=== PATIENT | female | born 1990 | race Caucasian/White ===

== ENCOUNTER 2018-12-11 20:00 | Inpatient (IN) | payer SELFPAY ==
[2018-12-11 20:34] VITALS: BMI 41.3
[2018-12-11] MEDS: Lactated Ringers 1,000 ML 50 ML IV ×2 (20:35→22:54)
[2018-12-11] MEDS: 0.9% Normal Saline 100 ML IV.SOLN. INTRA-UTER (21:00)
[2018-12-11] MEDS: Oxytocin 30 units/NS 500 ml 30 UNITS/500 ML IV.SOLN IV (21:05)
--- NOTE | 2018-12-11 21:31 | PCM.HP.OB ---
- Problem List (1) Obesity affecting Status: Acute (2) Previous section Status: Acute (3) Encounter for trial of labor Status: Acute (4) Multiparous Status: Acute (5) History of delivery of macrosomal infant Status: Acute (6) Post-dates Status: Acute History Date of Admission: 12/11/18 Final DAVID: 12/01/18 Final DAVID Source: US >20 weeks Gestational age: 41 Weeks and 3 Days History of this : This is a 28 year-old, G [7], P [5015], at 41 weeks 3days gestational age by 36w1d ultrasound. Patient presented for visit in office today for postdates. Patient being seen by daphnie Hernandezife during and had not gone into labor with herbal remedies and castor oil. Previous section due to failed induction of labor and CPD per section report. Prior to section she had 4 uncomplicated vaginal births at home. Patient had care with Karlene Osuna. No labs, she did not receive rhogam during . No GBS testing. In office reviewed option with patient for repeat LTCS vs. TOLAC. She desires TOLAC at this time. Having some irregular contractions since office visit today. Allergies No Known Allergies Allergy (Verified 08/18/17 17:38) Home Medications: Home Medications Vit No.129/Iron/Folic [ Tablet] 1 each PO 12/11/18 Smoking Status: Never smoker Alcohol: None Number of Fetus(es): 1 Heart Tracin, moderate variability, accels, no decels. Category 1 TOCO Analysis: Irregular, mild History Past Pregnancies: Past Pregnancies Delivery Date Name GA/Weeks Outcome Route Weight Gender Labor Length Anesthesia Delivery Location Provider FOB Labs: None Expected Infant Delivery Method: Number of Visits: care since 16 weeks with daphnie Hernandezife. Review of Systems Constitutional: Denies: Chills, Fever, Weight Change HEENT: Denies: Head Aches, Sinus Congestion, Sinus Drainage Cardiovascular: Denies: Chest Pain, Palpitations Respiratory: Denies: Cough, Shortness of breath at rest, Sputum production Gastrointestinal: Denies: Abdominal Pain, Nausea, Vomiting Genitourinary: Denies: Dysuria Musculoskeletal: Denies: Joint Pain, Joint Tenderness Neurological: Denies: Numbness, Tingling, Focal weakness Psychiatric: Denies: Anxiety, Depression, Homicidal Ideations, Suicidal Ideations Physical Exam General: Alert, Oriented x3, No apparent distress HEENT: Atraumatic, Normocephalic Cardiovascular: Regular rate, Regular Rhythm, No murmurs Lungs: Clear to auscultation, Normal air movement, No rhonchi, No wheeze Abdomen: Bowel Sounds Present, Soft, Non Tender, Gravid Extremities:: No edema Neurological: - - Bilateral patellar DTR +1/4. Negative for: Clonus CLAIMS ACCOUNT MANAGER: Normal external genitalia Estimated gestational size: Appropriate for gestational size Presentation: Cephalic Cervix Dilation (cm): 1 - Menard bulb placed without difficulty. Patient tolerated well. Station: -3 Effacement (%): 60 Assessment/Plan All Active Problems Obesity affecting (Acute) Previous section (Acute) Encounter for trial of labor (Acute) Multiparous (Acute) History of delivery of macrosomal (Acute) Post-dates (Acute) This is a 28 year-old, G [7], P [5015], at 41 weeks 3 days gestational age by third trimester ultrasound A:Post Dates Induction of Labor Category 1 FHT TOLAC P: 1) Admit to L&D. Routine labs. 2) No PN labs done, HIV, RPR, HBsAG ordered. Patient declined GC/CT. Rapid GBS ordered. 3) Planning unmedicated at this time. Reviewed epidural option and patient declines placement. 4) Menard bulb for cervical ripening. Low dose Pitocin started 5) consulted for comanagement and updated on patient status. present in hospital.
[2018-12-11 21:49] LABS: Rubella IgG 258.6 IU/mL
[2018-12-11 22:01] LABS: Group B Strep DNA By PCR Negative (Negative); Internal Control PASS; Probe Check PASS; Specimen Processing Control PASS
[2018-12-11 22:12] LABS: Mucous, Urine 0 SEEN /hpf (<or=2+)
[2018-12-11 22:16] LABS: Absolute Lymphocyte Count 2.04 X10^3/ul (0.83-4.51); Absolute Neutrophil Count 11.1 X10^3/uL (2.0-7.7); Basophil# 0.02 X10^3/uL; Basophil% 0.1 % (0-1); Eosinophil# 0.11 X10^3/uL; Eosinophils% 0.8 % (0-5); Hematocrit 35.8 % (37-47); Hemoglobin 11.9 g/dl (12.0-15.0); Lymphocyte # 2.04 X10^3/ul (4.0); Lymphocyte % 14.4 % (19-41); Mean Corp Hgb Conc 33.2 g/gl (32-36); Mean Corpuscular Hgb 28.9 pg (27.0-32.0); Mean Corpuscular Volume 86.9 fL (81-99); Mean Platelet Vol. 9.3 fl (6.2-12.0); Monocyte# 0.93 X10^3/uL; Monocyte% 6.6 % (0-10); Neutrophil # 11.06 X10^3/uL (2.7-7.7); Platelet Count 228 K/mm3 (150-450); RBC Distribution Width CV 13.3 % (11.6-14.6); RBC Distribution Width SD 42.6 fl (35.1-43.9); Red Blood Count 4.12 M/mm3 (4.2-5.4); White Blood Count 14.2 K/mm3 (4.4-11.0)
[2018-12-11 22:20] LABS: Color, Urine Yellow (Yellow); Glucose, Dipstick Normal (Normal); Ketone-Dipstick Negative (Negative); Leukocyte Esterase-Dipstick 25 /ul (Negative); Nitrite-Dipstick Negative (Negative); Occult Blood-Urine 250 /ul (Negative); POSITIVE COUNT NO; POSITIVE DIFFERENTIAL NO; POSITIVE MORPHOLOGY NO; Protein-Dipstick Negative (Negative); Specific Gravity, Urine 1.025 (1.002-1.030); Urine Bilirubin Dipstick Negative (Negative); Urine Clarity Sl. Cloudy (Clear); Urine Urobilinogen Normal (Normal)
[2018-12-11 22:25] LABS: Amphetamine Urine VISTA NEGATIVE (<1000 ng/mL); Barbiturate Urine VISTA NEGATIVE (< 200 ng/mL); Benzodiazepine Urine VISTA NEGATIVE (< 200 ng/mL); Cocaine Urine VISTA NEGATIVE (< 300 ng/mL); Ecstacy Urine VISTA NEGATIVE (< 500 ng/mL); Methadone Urine VISTA NEGATIVE (< 300 ng/mL); PCP Urine VISTA NEGATIVE (< 25 ng/mL); THC Urine VISTA NEGATIVE (< 50 ng/mL); Vista UDS pH Range 6
[2018-12-11 22:28] LABS: Bacteria 2+ /hpf (None Seen); Red Blood Cells-Urine 0-5 SEEN /hpf (0-5); White Blood Cells 0-5 SEEN /hpf (0-5)
[2018-12-11 22:30] LABS: Squamous Epithelial Cells - UA 5-10 SEEN /hpf (5-10)
[2018-12-11 23:49] LABS: HIV - WCH Non-Reactive (Nonreactive)
[2018-12-12 00:24] LABS: Chlamydia Trachomatis by PCR Negative (Negative); Neisserai gonorrhoeae by PCR Negative (Negative); Probe Check PASS; Sample Adequacy Control PASS; Specimen Processing Control PASS
[2018-12-12] MEDS: Lactated Ringers 1,000 ML 50 ML IV ×2 (03:11→06:23)
[2018-12-12] MEDS: fentaNYL-bupivacaine (epidural) 100 ML BAG EPIDURAL (04:00)
[2018-12-12] MEDS: Oxytocin 30 units/NS 500 ml 30 UNITS/500 ML IV.SOLN 334 UNITS IV (07:54)
--- NOTE | 2018-12-12 08:07 | PCM.OB.VAG ---
- Problem List (1) Obesity affecting Status: Acute (2) Previous section Status: Acute (3) Encounter for trial of labor Status: Acute (4) Multiparous Status: Acute (5) History of delivery of macrosomal infant Status: Acute (6) Post-dates Status: Acute (7) Vaginal after delivery Status: Acute Vaginal Delivery Maternal Presentation: Medically Indicated Induction Method of Induction: Pitocin, Menard Bulb Medical Reason for Induction: - - Postdates Amniotic Membrane Rupture Type: Artificial - Meconium stained fluid Amniotic Fluid Description: Lightly stained meconium Final DAVID: 12/01/18 Final DAVID Source: US >20 weeks Gestational age: 41 Weeks and 4 Days Date of Procedure: 12/12/18 Pre-Operative Diagnosis: Postdates Post-Operative Diagnosis: Surgery/ Procedure Performed: Spontaneous Vaginal Delivery Type of Anesthesia: Epidural Description of Procedure: Progressed to complete with urge to push. of viable female over intact perineum. APGARS 8,9. Infant delivered uncomplicated and placed on maternal abdomen. Spontaneous cry, mouth and nares suctioned for secretions, terminal meconium. Pitocin started for active 3rd stage management. Cord clamped and cut after pulsations ceased by FOB. Placenta delivered with maternal effort, intact, 3 vessel cord. Cord blood taken for B negative blood type. Fundus firm. Perineum inspected and intact, no repair. EBL 200ml. Vaginal sweep completed, instrument and sponge count complete. Planning to breastfeed. Mom and baby stable, family bonding well. present at hospital for . Presentation: Vertex Placental Delivery Description: Spontaneous Placenta Disposition: [facility] Cord Vessel Description: 3 Vessels Cord Entanglement: None Estimated Blood Loss: 200 ml Infant A gender: Female (1 minute): 8 (5 minute): 9 Episiotomy Description: None Laceration: None Medications given after delivery: IV Pitocin
[2018-12-12] MEDS: Oxytocin 30 units/NS 500 ml 30 UNITS/500 ML IV.SOLN 167 UNITS IV (08:24)
[2018-12-12] MEDS: 0.9% Saline Lock 10 ML Syringe IV (09:42)
--- NOTE | 2018-12-12 10:50 | NURSING ---
alexis cut bernal catheter during delivery period.
[2018-12-12 12:43] VITALS: BP 123/70; PULSE 87; RESP 18; TEMP 36.6
[2018-12-12 17:14] VITALS: BP 119/68; PULSE 81; RESP 18; TEMP 36.7
[2018-12-12 19:35] VITALS: BP 106/59; PULSE 87; RESP 16; TEMP 36.2
--- NOTE | 2018-12-12 23:38 | DCINST_ITS ---
Discharge Diet: No Restrictions Discharge Activity: Return to Normal Activity, May not drive while taking narcotic pain medications., May Shower, May Take a Tub Bath May resume sexual activity in: 4-6 weeks Weight Bearing Status: Full weight bearing Additional Activity Instructions:: Nothing in the vagina for 4-6 weeks. You may return to work/school in 6 weeks. Call your doctor if your incision/area has: Continuous Slow Oozing, Sudden Increased Bleeding, Increased Pain/ Swelling, Increased Redness, Foul Smelling Discharge Call your doctor if you observe: Fever of 101 or Higher, Inability to urinate, Inability to have a bowel movement, Using more than one pad per hour, Shortness of breath, Chest pain, Increased palpitations (irregular heartbeat), Calf discomfort, Uncontrolled pain Additional Instructions: If you experience any of the following, contact your healthcare provider. * Bleeding that soaks a pad every hour for 2 hours * Fever 100.4 or higher * Unrelieved incision or abdominal pain * Swelling, redness, discharge or bleeding from your incision or episiotomy site * Your incision begins to separate * Problems urinating (including inability to urinate or burning while urinating). * Visual changes * Severe headache * Flu-like symptoms * Pain or redness in one of both of your breasts * Pain, warmth, tenderness or swelling in your legs, especially the calf area * Frequent nausea and vomiting * Symptoms of depression or anxiety If you experience any of the following, call 911 or go to the nearest Emergency Room. * Chest pain * Problems breathing * Seizure activity * Partial or complete paralysis of a body part, slurred speech, weakness or drooping of the face, or a sudden inability to walk or hold your balance Allergies/Adverse Reactions: Allergies No Known Allergies Allergy (Verified 08/18/17 17:38) Medications to take at Discharge Vit No.129/Iron/Folic [ One Daily Tablet] 1 each PO 12/11/18 Please Follow Up With: Desi Weiss CNM When: Call to make an appointment with your doctor or data warehouse developer in 6 weeks. If you had elevated Blood Pressure or 4th degree laceration you will need to be seen in 2 weeks. Test Results: Test results from this visit will be discussed in further detail at your follow- up appointment, if applicable.
[2018-12-13 00:25] VITALS: BP 129/69; PULSE 74; RESP 16; TEMP 36.4
[2018-12-13 03:30] VITALS: BP 110/61; PULSE 74; RESP 16; TEMP 36.2
[2018-12-13 08:00] VITALS: BP 116/68; PULSE 88; RESP 16; TEMP 36.1; O2SAT 98
--- NOTE | 2018-12-13 09:13 | PCM.PN.OB ---
Patient Problems: Active and Suspected Problems Obesity affecting (Acute) Previous section (Acute) Encounter for trial of labor (Acute) Multiparous (Acute) History of delivery of macrosomal (Acute) Post-dates (Acute) Vaginal after delivery (Acute) Subjective: Pt doing well. No complaints. Tolerating reg diet. Ambulating and voiding without difficulty. Denies CP, lightheadedness, uncontrolled pain, leg pain. Cramping controlled. She feels ready to go home today. - Physical Exam General: Alert, No apparent distress HEENT: Atraumatic Lungs: - - No increased resp effort Abdomen: Soft, Non Tender, - - FF@U-1 Extremities: No edema Skin: No rashes Neurological: Neuro grossly intact Psych/Mental Status: Normal Affect, Appropriate Vital Signs Temp Pulse Resp BP Pulse Ox 97.0 F L 88 16 116/68 98 12/13/18 08:00 12/13/18 08:00 12/13/18 08:00 12/13/18 08:00 12/13/18 08:00 Oxygen Delivery Method Room Air Weight: 240 lb 11.916 oz Body Mass Index (BMI) 41.3 Intake and Output for Last 24 Hours 12/11/18 12/12/18 12/13/18 23:59 23:59 23:59 Intake Total 3716 / 3716 Output Total 200 / 200 2700 / 2700 Balance -200 / -200 1016 / 1016 Medical Necessity - Tobacco Use Smoking Status: Never smoker Assessment/Plan All Active Problems Obesity affecting (Acute) Previous section (Acute) Encounter for trial of labor (Acute) Multiparous (Acute) History of delivery of macrosomal (Acute) Post-dates (Acute) Vaginal after delivery (Acute) PPD#1 s/p - Doing well - D/c home today - Reviewed follow up at 6 weeks
[2018-12-14 11:58] LABS: HEPATITIS B SURFACE AG Negative (Negative); Hep C Antibodies 0.1 s/co ratio (0.0-0.9)
[2018-12-18 03:36] LABS: Rapid Plasmin Reagin (RPR) NONREACTIVE (NONREACTIVE)
== END 2018-12-13 11:30 | disposition home or self-care (01) | DRG 807 ==
PROVIDERS: Admitting Provider Obstetrics & Gynecology; Referring Provider Obstetrics & Gynecology; Visit Provider Obstetrics & Gynecology
DX: O34.211 Maternal care for low transverse scar from previous cesarean delivery (principal); Z37.0 Single live birth; O48.0 Post-term pregnancy; O77.0 Labor and delivery complicated by meconium in amniotic fluid; O99.214 Obesity complicating childbirth; E66.9 Obesity, unspecified; Z3A.41 41 weeks gestation of pregnancy
CPT/HCPCS: 59025; 59050; 80307; 81001; 85025; 86592; 86703; 86762; 86803; 86850; 86900; 87081; 87340; 87491; 87591; 87653; 99218; J7120; A4216; G0378

== ENCOUNTER 2020-04-21 14:00 | Outpatient (CLI) | payer SELFPAY ==
[2020-04-21] VITALS (16 sets, daily range): BP systolic 109–120; BP diastolic 55–65; PULSE 82–123; RESP 14; TEMP 36.6–37.4; O2SAT 98–99; BMI 37.8
[2020-04-21] MEDS: HYDROmorphone 0.5 MG/0.5 ML SYRINGE IV (14:50)
[2020-04-21] MEDS: Oxytocin 30 units/NS 500 ml 30 UNITS/500 ML IV.SOLN 336 UNITS IV (15:15)
[2020-04-21] MEDS: Methylergonovine 0.2 MG/ML Ampul IM (15:18)
--- NOTE | 2020-04-21 15:30 | OP.PCM_ITS ---
Problem List (1) Retained placenta Status: Acute Qualifiers: Retained placenta detail: portions of placenta Qualified Code(s): O73.1 - Retained portions of placenta and membranes, without hemorrhage Report of Operation Date of Procedure: 04/21/20 Pre-Operative Diagnosis: s/p extramural . Retained placenta. hemorrhage Post-Operative Diagnosis: s/p extramural . retained placenta. hemorrhage Surgery/Procedure Performed:: US guided curettage thermodynamics professor: None Type of Anesthesia:: IV Sedation Specimen's removed: placenta portions Estimated Blood Loss (mL): 700 ml Fluids Replaced: 1000 ml Description of Procedure: US showed heterogenous density with hyperechoic areas at the fundal endometrium and a density c/w clot in the lower uterine segment. Uterine scar appeared intact and no evidence of free fluid detected. Bladder was full. Consents was obtained for bimanual examination, Banjo curettage and bladder catheterization. A shallow first degree perineal laceration not requiring repair was noted. The urethra was prepped with betadine and indwelling bernal catheter placed draining more than 800cc of urine. Bimanual examination was performed with uterine atony noted, no palpable placenta portions with retrieval of appoximately 100cc of clot from the lower uterine segment. Fundal tone improved following the exam. US guided curettage was performed with #5 curettage at the bedside with retrieval of small placental parts. A thin endometrial stripe remained and there was excellent hemostasis. Patient administered IV pitocin and IM Methergine. - Complications None - Admit VTE Documentation VTE Present on Admission: No VTE Pharm Prophylaxis ordered?: No
[2020-04-21 16:15] LABS: Hematocrit 31.1 % (37-47); Hemoglobin 10.6 g/dL (12.0-15.0); Mean Corp Hgb Conc 34.1 g/dL (32-36); Mean Corpuscular Hgb 29.3 pg (27.0-32.0); Mean Corpuscular Volume 85.9 fL (81-99); Mean Platelet Vol. 9.8 fl (6.2-12.0); POSITIVE COUNT YES; POSITIVE DIFFERENTIAL YES; POSITIVE MORPHOLOGY YES; Platelet Count 277 K/mm3 (150-450); RBC Distribution Width CV 12.4 % (11.6-14.6); RBC Distribution Width SD 38.4 fl (35.1-43.9); Red Blood Count 3.62 M/mm3 (4.2-5.4)
[2020-04-21 16:24] LABS: Differential Indicated MANUAL DIFF; White Blood Count 30.8 K/mm3 (4.4-11.0)
[2020-04-21 16:40] LABS: Partial Thromboplast Time 27.1 Seconds (24.1-36.2)
[2020-04-21 16:41] LABS: Fibrinogen 386 mg/dl (203-444)
[2020-04-21 16:50] LABS: Lymphocyte 6 % (19-41); Neutrophil-Segmented 94 % (47-70); Total Cells Counted 100 (MANUAL DIFF)
[2020-04-21 16:52] LABS: Absolute Neutrophil Count 28.9 X10^3/uL (2.0-7.7)
[2020-04-21 16:53] LABS: Absolute Lymphocyte Count 1.85 X10^3/uL (0.83-4.51); Differential Comment SEE COMMENTS
[2020-04-21 16:54] LABS: Anisocytosis RARE; Platelet Estimate ADEQUATE (ADEQ); Red Cell Morphology N CHROM NORMAL (NORM C&C)
--- NOTE | 2020-04-21 18:48 | HP.PCM_ITS ---
- Problem List (1) Retained placenta Status: Acute Qualifiers: Retained placenta detail: portions of placenta Qualified Code(s): O73.1 - Retained portions of placenta and membranes, without hemorrhage History Date of Admission: 04/21/20 Final DAVID: 04/19/20 Final DAVID Source: LMP Gestational age: 40 Weeks and 2 Days History of this : This is a 29 year-old, G [7], P [1577] brought in by EMS following a home vaginal after section with chief complaint of placenta came out in pieces. She had a living female infant at 1242h today. Her placenta was reported to come out in pieces however and she had heavy vaginal bleeding. Patient reports generalized weakness. Denies lightheadedness, palpitations or heart racing, shortness of breath or chest pain. Denies prior complications apart from section 3 years ago for distress. Medical History: Medical History (Last Updated 04/21/20 @ 18:[address] Marika Guido MD) Patient denies significant medical history Surgical History: Surgical History (Last Updated 04/21/20 @ 18:[address] Marika Guido MD) Previous section Z98.891 2017 Allergies No Known Allergies Allergy (Verified 04/21/20 15:01) Home Medications: Home Medications Pnv No.95/Ferrous Fum/Folic AC [ Caplet] 1 ea PO 04/21/20 Smoking Status: Never smoker Alcohol: None Review of Systems Constitutional: Denies: Chills, Fever HEENT: Denies: Head Aches, Sore Throat, Visual Changes Cardiovascular: Denies: Chest Pain Respiratory: Denies: Cough, Shortness of Breath Gastrointestinal: Reports: - - reports lower abdominal cramping. Denies: Nausea, Vomiting Gynecological: Reports: Vaginal bleeding Physical Exam Vitals: Vital Signs Temp Pulse BP Pulse Ox 99.3 F H 95 111/65 98 04/21/20 14:59 04/21/20 16:54 04/21/20 16:54 04/21/20 14:36 General: Alert, Oriented x3, Cooperative, No apparent distress HEENT: Atraumatic, Normocephalic Cardiovascular: Regular Rhythm, Normal S1, Normal S2, Tachycardic Lungs: Clear to auscultation, Normal air movement Abdomen: Soft, Non Tender, Non-Distended Extremities:: No edema Neurological: Neuro grossly intact BENEFITS SALES CONSULTANT: Normal external genitalia Assessment/Plan All Active Problems (Last Updated 04/21/20 @ 18:[address] Marika Guido MD) Retained placenta (Acute) This is a 29 year-old, G [7], P [7], s/p with retained placenta portions. -Placenta examined and c/w cord avulsion with main placental body and an additional lobe brought in from extramural site -Bimanual examination was performed with uterine atony noted, no palpable placenta portions with retrieval of appoximately 100cc of clot from the lower uterine segment. US showed heterogenous density with hyperechoic areas at the fundal endometrium. US guided curettage was performed at the bedside with retrieval of small placental parts. See procedure note. -Hemostasis maintained -CBC, coags sent -f/u T&S
--- NOTE | 2020-04-21 20:05 | PCM.PN.OB ---
Patient Problems: Active and Suspected Problems (Last Updated 04/21/20 @ 18:[address] Marika Guido MD) Retained placenta (Acute) Subjective: Reports energy improved and no longer feels well. She is her infant. Declines pain medication, relates she usually uses herbs if needed for pain after her deliveries. Denies heavy lochia and is without complaints. Objective: AVSS - Physical Exam Vitals/I&O's: Vital Signs Temp Pulse BP Pulse Ox 99.3 F H 97 115/59 L 99 04/21/20 14:59 04/21/20 19:41 04/21/20 19:40 04/21/20 19:41 Intake and Output for Last 24 Hours 04/19/20 04/20/20 04/21/20 23:59 23:59 23:59 Intake Total 1000 / 1000 Output Total 1700 / 1700 Balance -700 / -700 General: Alert, Oriented x3, Cooperative, No apparent distress, - - comfortable, nursing her - Arlene HEENT: Atraumatic, Normocephalic Neurological: Neuro grossly intact Psych/Mental Status: Normal Affect, Appropriate, Alert and oriented to time, place, person, mood and affect Laboratory Results 04/21/20 15:55: Blood Type B NEGATIVE, Antibody Screen NEGATIVE, Crossmatch See Detail 04/21/20 15:55: WBC 30.8 H*, RBC 3.62 L, Hgb 10.6 L, Hct 31.1 L, MCV 85.9, MCH 29.3, MCHC 34.1, RDW Std Deviation 38.4, RDW Coeff of Edie 12.4, Plt Count 277, MPV 9.8, Neut % (Auto) Not Reportable, Absolute Neuts (auto) 28.9 H, Absolute Lymphs (auto) 1.85, Total Counted 100, Neutrophils % (Manual) 94 H, Lymphocytes % (Manual) 6 L, Differential Comment SEE COMMENTS, Diff Path Review January, Platelet Estimate ADEQUATE, RBC Morphology N CHROM, Anisocytosis RARE 04/21/20 15:55: PT 13.0, INR 1.0, APTT 27.1, Fibrinogen 386 Medical Necessity - Tobacco Use Smoking Status: Never smoker Assessment/Plan All Active Problems (Last Updated 04/21/20 @ 18:[address] Marika Guido MD) Retained placenta (Acute) This is a 29 year-old, P7 s/p extramural complicated by hemorrhage with retained placental portion s/p curettage. -Doing well -Catheter discontinued -B negative - given that it is Friday night, is A positive and she is staying for overnight observation I advise Rhogam with plan to defer infant blood typing at this time. Patient in agreement. -Will continue to observe. Repeat CBC in am.
[2020-04-22 00:04] VITALS: BP 114/57; PULSE 89
[2020-04-22 00:05] VITALS: BP 114/57; PULSE 89; RESP 12; TEMP 36.4
[2020-04-22] MEDS: 0.9% Saline Lock 10 ML Syringe IV (00:44)
[2020-04-22 04:19] VITALS: BP 96/47; PULSE 90; O2SAT 99
[2020-04-22 04:20] VITALS: BP 95/53; PULSE 91; PULSE 93; RESP 16; TEMP 36.2; O2SAT 99
[2020-04-22 06:04] LABS: Hematocrit 26.1 % (37-47); Hemoglobin 8.7 g/dL (12.0-15.0); Mean Corp Hgb Conc 33.3 g/dL (32-36); Mean Platelet Vol. 9.3 fl (6.2-12.0); Platelet Count 234 K/mm3 (150-450); RBC Distribution Width CV 12.9 % (11.6-14.6); RBC Distribution Width SD 39.8 fl (35.1-43.9)
--- NOTE | 2020-04-22 07:26 | DCINST_ITS ---
- Discharge Diagnoses Current Active Problems: Current Active and Chronic Problems (Last Updated 04/21/20 @ 18:[address] Marika Guido MD) Retained placenta (Acute) Reason(s) for Visit for Discharge Instructions: Retained placenta You will use the following diet at home:: No restrictions, Regular Your food should be the consistency of: Regular Discharge Activity: Return to Normal Activity, May Shower, May Take a Tub Bath May resume sexual activity in: 4-6 weeks Call your doctor if you observe: Fever of 101 or Higher, Inability to urinate, Inability to have a bowel movement, Using more than one pad per hour, Shortness of breath, Chest pain, Calf discomfort, Uncontrolled pain Allergies/Adverse Reactions: Allergies No Known Allergies Allergy (Verified 04/21/20 15:01) Medications to take at Discharge Pnv No.95/Ferrous Fum/Folic AC [ Caplet] 1 ea PO 04/21/20 Ferrous Sulfate 325 mg PO BID #60 tab 04/22/20 The following prescriptions were given: Ferrous Sulfate 325 mg PO BID #60 tab Transmission Status: Pending to [facility] Primary Care Physician: Care Physician,No Primary [Primary Care Provider] - Test Results: Test results from this visit will be discussed in further detail at your follow- up appointment, if applicable. Please Follow Up With: Tadeo When: 1-2 weeks
[2020-04-22 08:07] VITALS: BP 107/57; PULSE 88
[2020-04-22 08:13] VITALS: BP 107/57; PULSE 88; RESP 15; TEMP 36.8
[2020-04-24 13:09] LABS: Pathologist Review Reviewed
== END 2020-04-22 09:20 | disposition home or self-care (01) ==
LOC: WPOUT 14:26 → WP 14:26
PROVIDERS: Referring Provider Obstetrics & Gynecology; Visit Provider Obstetrics & Gynecology
DX: O72.2 Delayed and secondary postpartum hemorrhage (principal); O34.219 Maternal care for unspecified type scar from previous cesarean delivery; O75.89 Other specified complications of labor and delivery; Z3A.40 40 weeks gestation of pregnancy; Z37.0 Single live birth
CPT/HCPCS: 59160; 36415; 85025; 85027; 85384; 85461; 85610; 85730; 86850; 86900; 86901; 86920; 86922; 90384; 96372; 99218; J7030; A4216; G0378; J2790

== ENCOUNTER 2022-01-08 14:25 | Inpatient (IN) | payer OTHER, SELFPAY ==
[2022-01-08] VITALS (8 sets, daily range): BP systolic 112–140; BP diastolic 78–96; PULSE 88–109; RESP 12–18; TEMP 36.4–36.8; O2SAT 100; BMI 36.0; BMI 36.1
--- NOTE | 2022-01-08 14:52 | EKG12_ITS ---
Test Reason : WEAKNESS Blood Pressure : / mmHG Vent. Rate : 105 BPM Atrial Rate : 105 BPM P-R Int : 166 ms QRS Dur : 078 ms QT Int : 328 ms P-R-T Axes : 039 002 023 degrees QTc Int : 433 ms Sinus tachycardia Otherwise normal ECG Confirmed by MARCOS MOCTEZUMA, SUNIL ([id number]), editor index CONRADO GUTIERREZ ([id number]) on 01/10/2022 7:23:48 AM Referred By: MARIJA Confirmed By:SUNIL RODRÍGUEZ MD
--- NOTE | 2022-01-08 14:53 | EX.ED.DYSGE1 ---
HPI History of Present Illness Chief Complaint: Weakness Narrative Narrative: 31-year-old [facility] female presents with generalized weakness and palpitations. She states that she developed a rash on her face that was very similar to poison latha. That developed on Friday, 4 days ago. It was very itchy. She put lotion on her face and states that the swelling and itchiness has improved. However, she notes drainage from the lesions on her face. Yesterday, she felt well, but today she had heart palpitations. She states she has had those before. They lasted for about 15 minutes. She states she felt very weak and was unable to raise both her arms and was very tired. This lasted approximately 1 hour. She was brought to the emergency department, and became nauseated because she usually gets carsick. While she is feeling improved, she states that she was concerned about the palpitations and the generalized weakness. She denies any paresthesias. No fevers or chills. No chest pain or shortness of breath. No swelling of her legs. [facility] Medical History Patient denies significant medical history Allergy/AdvReac Type Severity Reaction Status Date / Time No Known Allergies Allergy Verified 01/08/22 14:34 Surgical History Previous section Social History Smoking Status: Never smoker ROS ROS ED ROS Narrative Constitutional: No fever, no chills. Generalized weakness. HEENT: No sore throat. No neck pain. No loss of vision. No rhinorrhea. Cardiovascular: No chest pain. Positive heart palpitations. No pedal edema. Respiratory: No cough, no shortness of breath. Abdominal: No abdominal pain. No nausea. No vomiting. Genitourinary: No dysuria. No hematuria. Musculoskeletal: No myalgias. No arthralgias. Neurologic: No headaches. No dizziness. No lightheadedness. Generalized weakness, difficulty raising bilateral arms Skin: Positive itchy rash on face bilaterally, diffusely. Mild erythema/positive change in color. Psychiatric: No depression. No anxiety. EXAM Physical Exam Narrative Exam Narrative: Afebrile. Vital signs noted. HEENT: Normocephalic. Atraumatic. PERRL, EOMI. Neck soft and supple. No point tenderness or step off. Positive rash diffusely throughout face on cheeks and forehead with mild swelling and erythema. Minimal drainage, possibly honey crusted. Cardiovascular: Regular rate and rhythm. No murmurs, rubs, or gallops appreciated. Respiratory: No tachypnea. Lungs clear to auscultation bilaterally. Gastrointestinal: Abdomen soft, nontender, with normoactive bowel sounds. No rebound or guarding. Neurological: Awake. Alert. Nonfocal, nonlateralizing. Able to ambulate to bathroom without difficulty. Skin: Facial rash. Normal color otherwise. No pallor. Musculoskeletal: No pedal edema. Full range of motion extremities. Const Vital Signs: 01/08/22 14:28 01/08/22 14:45 01/08/22 15:06 Temperature 98.2 F Temperature Source Oral Pulse Rate 100 Respiratory Rate 16 Respiratory Effort Normal Non-Labored Respiratory Pattern Normal Blood Pressure 125/84 H Blood Pressure Mean 97 Pulse Ox 100 Oxygen Delivery Method Room Air Room Air 01/08/22 15:12 01/08/22 16:08 01/08/22 16:16 Temperature 97.6 F L Temperature Source Oral Pulse Rate 101 H 107 H Respiratory Rate 18 12 Respiratory Effort Respiratory Pattern Blood Pressure 133/88 H 140/82 H 137/96 H Blood Pressure Mean 103 101 109 Pulse Ox 100 100 Oxygen Delivery Method Room Air Room Air Room Air 01/08/22 16:17 Temperature 97.6 F L Temperature Source Oral Pulse Rate Respiratory Rate Respiratory Effort Respiratory Pattern Blood Pressure Blood Pressure Mean Pulse Ox Oxygen Delivery Method MDM MDM MDM Narrative Medical decision making narrative: Comprehensive work-up was pursued. Concern is for sepsis given her weakness and heart palpitations. EKG demonstrates sinus tachycardia 105 bpm without ectopy or acute ST changes. She has an elevated white count of 19.3 with lymphocytes of 5.1. Urinalysis shows no evidence of infection. Sepsis work-up was pursued. However, given her leukocytosis she will be started on vancomycin and Unasyn for soft tissue infection as she may have impetigo of her face. Lactic acid normal at 0.8. Urinalysis shows no evidence of infection. Her CMP is currently pending along with her troponin. However, as I feel she meets SIRS criteria, I discussed the patient with Dr. Jaqui Linn for observation on [facility]. She is in stable condition. Lab Data Attestation: I reviewed the patient's lab results. Labs: Laboratory Results - last 24 hr 01/08/22 01/08/22 01/08/22 15:00 15:02 15:02 WBC 19.3 H RBC 5.34 Hgb 11.8 L Hct 37.9 MCV 71.0 L MCH 22.1 L MCHC 31.1 L RDW Std Deviation 48.9 H RDW Coeff of Edie 19.9 H Plt Count 295 MPV 9.1 Immature Gran % (Auto) 0.400 Neut % (Auto) 87.8 H Lymph % (Auto) 5.1 L Porter % (Auto) 4.0 Eos % (Auto) 2.5 Baso % (Auto) 0.2 Absolute Neuts (auto) 16.9 H Absolute Lymphs (auto) 0.99 Nucleated RBC % 0 Lactic Acid 0.8 Urine Color Yellow Urine Clarity Clear Urine pH 6.0 Ur Specific [place] 1.010 Urine Protein Negative Urine Glucose (UA) Normal Urine Ketones Negative Urine Occult Blood 25 H Urine Nitrite Negative Urine Bilirubin Negative Urine Urobilinogen Normal Ur Leukocyte Esterase 25 H Urine RBC 0 SEEN Urine WBC 0 SEEN Ur Squamous Epith Cells 0-5 SEEN Urine Bacteria 0 SEEN Urine Mucus 0 SEEN Discharge Plan Dx/Rx/DC Orders Clinical Impression: Cellulitis of face, SIRS (systemic inflammatory response syndrome) Disposition Disposition: Acute Care Hospital [facility]
[2022-01-08 15:09] LABS: Bacteria 0 SEEN /hpf (None Seen); Mucous, Urine 0 SEEN /hpf (<or=2+); Red Blood Cells-Urine 0 SEEN /hpf (0-5); White Blood Cells 0 SEEN /hpf (0-5)
[2022-01-08] MEDS: 0.9% Normal Saline 1,000 ML 999 ML IV (15:12)
[2022-01-08 15:18] LABS: Color, Urine Yellow (Yellow); Glucose, Dipstick Normal (Normal); Ketone-Dipstick Negative (Negative); Leukocyte Esterase-Dipstick 25 /ul (Negative); Nitrite-Dipstick Negative (Negative); Occult Blood-Urine 25 /ul (Negative); Protein-Dipstick Negative (Negative); Urine Bilirubin Dipstick Negative (Negative); Urine Clarity Clear (Clear); Urine Urobilinogen Normal (Normal)
[2022-01-08 15:23] LABS: Squamous Epithelial Cells - UA 0-5 SEEN /hpf (5-10)
[2022-01-08 15:31] LABS: Absolute Lymphocyte Count 0.99 X10^3/uL (0.83-4.51); Absolute Neutrophil Count 16.9 X10^3/uL (2.0-7.7); Basophil# 0.03 X10^3/uL; Basophil% 0.2 % (0-1); Eosinophil# 0.49 X10^3/uL; Eosinophils% 2.5 % (0-5); Hematocrit 37.9 % (37-47); Hemoglobin 11.8 g/dL (12.0-15.0); Lymphocyte # 0.99 X10^3/ul (0.83-4.51); Lymphocyte % 5.1 % (19-41); Mean Corp Hgb Conc 31.1 g/dL (32-36); Mean Corpuscular Hgb 22.1 pg (27.0-32.0); Mean Platelet Vol. 9.1 fl (6.2-12.0); Monocyte# 0.77 X10^3/uL; NRBC Flagged by Analyzer 0 % (0-5); Neutrophil # 16.91 X10^3/uL (2.7-7.7); Neutrophil % 87.8 % (47-70); Platelet Count 295 K/mm3 (150-450); RBC Distribution Width CV 19.9 % (11.6-14.6); RBC Distribution Width SD 48.9 fl (35.1-43.9); Red Blood Count 5.34 M/mm3 (4.2-5.4); White Blood Count 19.3 K/mm3 (4.4-11.0)
[2022-01-08 16:05] LABS: Lactic Acid 0.8 mmol/L (0.4-1.9)
--- NOTE | 2022-01-08 16:17 | ED.RN ---
PT. CURRENTLY BREAST FEEDS. PT. INFORMED THAT THEY WOULD NOT BE ABLE TO BREASTFEED, NOR HAVE AT BEDSIDE WHILE IN HOSPITAL, AND WOULD BE ABLE TO PUMP AND DUMP BREAST MILK DUE TO MEDICATION THEY WILL BE BEING GIVEN IN HOSPITAL. PT. AND VERBALIZED UNDERSTANDING.
--- NOTE | 2022-01-08 16:22 | NURSING ---
MED SURG OBS WHITE FACIAL CELLULITIS
[2022-01-08 16:28] LABS: ALB/GLOB Ratio 0.9 RATIO (0.9-2.4); AST(SGOT) 14 U/L (15-37); Alanine Aminotransfer ALT/SGPT 20 U/L (13-56); Albumin, Serum 3.4 g/dL (3.2-5.0); Alkaline Phosphatase 98 U/L (45-117); Anion Gap 7 (5-15); BUN 13 mg/dL (7-18); BUN/Creat Ratio 20.5 RATIO (10-20); Calcium,Total 8.8 mg/dL (8.5-10.1); Chloride 104 mmol/L (98-107); Creatinine, Serum 0.63 mg/dL (0.55-1.02); EST Glomerular Filtration Rate 117 mL/min (>60); Est Glom Filt Rate - Afr Amer 141 mL/min (>60); Estimated Creatinine Clearance 112.75 ml/min; Globulin 3.9 g/dL (2.2-4.2); Glucose 106 mg/dL (74-106); Potassium 3.9 mmol/L (3.5-5.1); Protein, Total 7.3 g/dL (6.4-8.2); Sodium Level 137 mmol/L (136-145); Troponin-I HS < 3 pg/mL (3.0-54.0)
--- NOTE | 2022-01-08 16:39 | PCM.HP.STD ---
Documented by User: Desi Ahumada NP, [employer] 01/08/22 17:04 HPI - General General Date of Admission: 01/08/22 HPI Narrative SHANTAL CHURCH, is a 31 F who presents to the emergency room due to rash. Patient reports she was working in the yard on Friday and pulling weeds with likely poison latha and then subsequently burned the brush pile. She states later on that night she developed right eye surrounding redness and itching which then developed into blisters on her face which she was itching. She states she put a topical poison latha cream on her face without improvement and rash later spread down her neck, chest, abdomen with a few spots on her lower extremities. She denies fever, chills. She states her face developed crusting. She denies significant drainage. She denies vision changes. Denies throat involvement or difficulty swallowing. She does report shortness of breath and weakness/fatigue. She denies any past medical history. [facility] Medical History Patient denies significant medical history Home Medications NK 01/08/22 [History Last Taken Unknown] Allergy/AdvReac Type Severity Reaction Status Date / Time No Known Allergies Allergy Verified 01/08/22 14:34 Family History (Updated 01/08/22 @ 16:43 by Desi Ahumada NP, [employer]) Father Heart disease Mother Heart disease Surgical History Previous section Social History (Updated 01/08/22 @ 16:44 by Desi Ahumada NP, [employer]) household members: spouse and children Smoking Status: Never smoker alcohol intake: never substance use type: does not use ROS Constitutional Constitutional: Reports fatigue, malaise and weakness; Denies change in weight, chills or fever(s) Eyes Eyes: Reports other Details: Redness and itching of surrounding eye area ; Denies blurry vision, change in vision or eye pain Cardiovascular Cardiovascular: Denies chest pain, edema, lightheadedness, palpitations or syncope Respiratory/Chest Respiratory/Chest: Reports dyspnea; Denies cough, productive cough or wheezing Gastrointestinal Gastrointestinal: Denies abdominal pain, constipation, diarrhea, nausea or vomiting Genitourinary Genitourinary: Denies burning urination, difficulty urinating, dysuria, hematuria, urinary frequency, urinary incontinence or urinary urgency Musculoskeletal Musculoskeletal: Denies back pain, joint pain or muscle weakness Integumentary Integumentary: Reports rash and other Details: Diffuse pruritic rash ; Denies erythema, lesions or wounds Neurologic Neurologic: Denies abnormal speech, confusion, dizziness, focal weakness, numbness, paresthesias, seizure-like activity or syncope Psychiatric Psychiatric: Denies anxiety or depression Hematologic/Lymphatic Hematologic/Lymphatic: Denies anemia, easy bleeding or easy bruising Allergic/Immunologic Allergic/Immunologic: Denies hives or asthma Vital Signs Vital Signs Vital Signs: 01/08/22 14:28 01/08/22 14:45 01/08/22 15:06 Temperature 98.2 F Temperature Source Oral Pulse Rate 100 Respiratory Rate 16 Respiratory Effort Normal Non-Labored Respiratory Pattern Normal Blood Pressure 125/84 H Blood Pressure Mean 97 Pulse Ox 100 Oxygen Delivery Method Room Air Room Air 01/08/22 15:12 01/08/22 16:08 01/08/22 16:16 Temperature 97.6 F L Temperature Source Oral Pulse Rate 101 H 107 H Respiratory Rate 18 12 Respiratory Effort Respiratory Pattern Blood Pressure 133/88 H 140/82 H 137/96 H Blood Pressure Mean 103 101 109 Pulse Ox 100 100 Oxygen Delivery Method Room Air Room Air Room Air 01/08/22 16:17 01/08/22 16:20 Temperature 97.6 F L 97.6 F L Temperature Source Oral Oral Pulse Rate 109 H Respiratory Rate 18 Respiratory Effort Respiratory Pattern Blood Pressure 137/96 H Blood Pressure Mean 109 Pulse Ox 100 Oxygen Delivery Method Room Air Weight Weight: 210 lb Body Mass Index (BMI) 36.0 Physical Exam Const alert and oriented x3 Orientation / Consciousness: awake, oriented to person, oriented to place and oriented to time HEENT normocephalic Mouth: dry mucous membranes Eyes PERRL, EOMs intact bilaterally and conjunctivae normal Neck no lymphadenopathy Resp normal respiratory effort and clear to auscultation bilaterally Cardio regular rate, regular rhythm and no murmurs Peripheral Pulses: pulses 2+ throughout GI normal to inspection, nondistended, normoactive bowel sounds, non-tender and non-distended Extremity normal to inspection Skin no rashes or lesions noted Skin Narrative: Diffuse rash involving the face, neck, breast, abdomen with less areas on bilateral legs. Diffuse erythema. Yellow crusting rash on face. Lesions: no lesions Rashes: no rashes Trauma: no lacerations or abrasions Neuro CN's II-XII intact bilaterally, no focal motor deficits, no sensory deficits noted and deep tendon reflexes 2+ bilaterally Psych mental status grossly normal and affect normal Results Lab / Micro Data Result Diagrams: 01/08/22 15:02 01/08/22 16:00 Labs: Laboratory Results - last 24 hr 01/08/22 15:00: Urine Color Yellow, Urine Clarity Clear, Urine pH 6.0, Ur Specific [place] 1.010, Urine Protein Negative, Urine Glucose (UA) Normal, Urine Ketones Negative, Urine Occult Blood 25 H, Urine Nitrite Negative, Urine Bilirubin Negative, Urine Urobilinogen Normal, Ur Leukocyte Esterase 25 H, Urine RBC 0 SEEN, Urine WBC 0 SEEN, Ur Squamous Epith Cells 0-5 SEEN, Urine Bacteria 0 SEEN, Urine Mucus 0 SEEN 01/08/22 15:02: WBC 19.3 H, RBC 5.34, Hgb 11.8 L, Hct 37.9, MCV 71.0 L, MCH 22.1 L, MCHC 31.1 L, RDW Std Deviation 48.9 H, RDW Coeff of Edie 19.9 H, Plt Count 295, MPV 9.1, Immature Gran % (Auto) 0.400, Neut % (Auto) 87.8 H, Lymph % (Auto) 5.1 L, [place] % (Auto) 4.0, Eos % (Auto) 2.5, Baso % (Auto) 0.2, Absolute Neuts (auto) 16.9 H, Absolute Lymphs (auto) 0.99, Nucleated RBC % 0 01/08/22 15:02: Lactic Acid 0.8 01/08/22 16:00: Sodium 137, Potassium 3.9, Chloride 104, Carbon Dioxide 26.0, Anion Gap 7, BUN 13, Creatinine 0.63, Estim Creat Clear Calc 112.75, Est GFR (MDRD) Af Amer 141, Est GFR (MDRD) Non-Af 117, BUN/Creatinine Ratio 20.5 H, Glucose 106, Calcium 8.8, Total Bilirubin 0.30, AST 14 L, ALT 20, Alkaline Phosphatase 98, Troponin I High Sens < 3 L, Total Protein 7.3, Albumin 3.4, Globulin 3.9, Albumin/Globulin Ratio 0.9 Assessment & Plan Assessment/Plan (1) Cellulitis of face: PLAN: 1. SIRS secondary to diffuse poison latha dermatitis with superimposed bacterial cellulitis- IV solu-medrol. IV rocephin. As needed pain regimen. Nystatin for groin folds. 2. Obesity-diet and lifestyle modifications encouraged. DVT prophylaxis-not indicated, low risk This patient was seen by SAI Nelson under the supervision of Dr. Linn. Time spent examining patient, reviewing data and subsequent management of care: 17 minutes Documented by User: Dr. Jaqui Linn MD 01/08/22 17:21 HPI - General General Date of Admission: 01/08/22 [facility] Medical History Patient denies significant medical history Home Medications NK 01/08/22 [History Last Taken Unknown] Allergy/AdvReac Type Severity Reaction Status Date / Time No Known Allergies Allergy Verified 01/08/22 14:34 Family History (Updated 01/08/22 @ 16:43 by Desi Ahumada NP, [employer]) Father Heart disease Mother Heart disease Surgical History Previous section Social History (Updated 01/08/22 @ 16:44 by Desi Ahumada NP, [employer]) household members: spouse and children Smoking Status: Never smoker alcohol intake: never substance use type: does not use Results Lab / Micro Data Result Diagrams: 01/08/22 15:02 01/08/22 16:00
[2022-01-08] MEDS: 0.9% Normal Saline 1,000 ML 100 ML IV (18:50)
--- NOTE | 2022-01-08 18:58 | EKG12_ITS ---
Test Reason : PALPITATIONS Blood Pressure : / mmHG Vent. Rate : 104 BPM Atrial Rate : 104 BPM P-R Int : 180 ms QRS Dur : 080 ms QT Int : 346 ms P-R-T Axes : 041 -07 021 degrees QTc Int : 454 ms Sinus tachycardia Otherwise normal ECG When compared with ECG of 08-JAN-2022 15:07, No significant change was found Confirmed by KURT MOCTEZUMA, CARLOS ([id number]), clinical editor CONRADO GUTIERREZ ([id number]) on 01/15/2022 8:23:26 AM Referred By: TAYO Confirmed By:CARLOS HICKS MD
[2022-01-08] MEDS: Nystatin Powder 15gm Bottle 1 APPLIC TOPICAL (21:05)
[2022-01-08] MEDS: DiphenhydrAMINE 25 MG Capsule 50 MG PO (21:16)
[2022-01-08] MEDS: Cefazolin 1 GM/50 ML BAG IV (21:16)
[2022-01-09] MEDS: 0.9% Normal Saline 1,000 ML 100 ML IV (02:18)
[2022-01-09 02:43] VITALS: BP 117/78; PULSE 94; RESP 16; TEMP 37.1; O2SAT 100
[2022-01-09] MEDS: Cefazolin 1 GM/50 ML BAG IV ×3 (05:31→22:09)
[2022-01-09 05:42] LABS: Absolute Lymphocyte Count 0.71 X10^3/uL (0.83-4.51); Absolute Neutrophil Count 11.7 X10^3/uL (2.0-7.7); Basophil# 0.02 X10^3/uL; Basophil% 0.2 % (0-1); Eosinophil# 0.01 X10^3/uL; Eosinophils% 0.1 % (0-5); Hemoglobin 11.8 g/dL (12.0-15.0); Lymphocyte # 0.71 X10^3/ul (0.83-4.51); Lymphocyte % 5.6 % (19-41); Mean Corp Hgb Conc 30.3 g/dL (32-36); Mean Corpuscular Hgb 21.7 pg (27.0-32.0); Mean Corpuscular Volume 71.7 fL (81-99); Mean Platelet Vol. 9.7 fl (6.2-12.0); Monocyte# 0.08 X10^3/uL; Monocyte% 0.6 % (0-10); NRBC Flagged by Analyzer 0 % (0-5); Neutrophil # 11.72 X10^3/uL (2.7-7.7); Neutrophil % 93.2 % (47-70); POSITIVE MORPHOLOGY YES; Platelet Count 312 K/mm3 (150-450); RBC Distribution Width CV 20.1 % (11.6-14.6); RBC Distribution Width SD 49.6 fl (35.1-43.9); Red Blood Count 5.44 M/mm3 (4.2-5.4); White Blood Count 12.6 K/mm3 (4.4-11.0)
[2022-01-09 06:07] LABS: Differential Indicated SCAN CRITERIA MET
[2022-01-09 06:28] LABS: Anisocytosis 2+; Differential Comment SCANNED; Microcytosis 2+
[2022-01-09 06:36] LABS: Anion Gap 7 (5-15); BUN 10 mg/dL (7-18); BUN/Creat Ratio 19.1 RATIO (10-20); Calcium,Total 8.8 mg/dL (8.5-10.1); Chloride 108 mmol/L (98-107); Creatinine, Serum 0.52 mg/dL (0.55-1.02); EST Glomerular Filtration Rate 145 mL/min (>60); Est Glom Filt Rate - Afr Amer 176 mL/min (>60); Glucose 141 mg/dL (74-106); Sodium Level 138 mmol/L (136-145)
[2022-01-09] MEDS: Nystatin Powder 15gm Bottle 1 APPLIC TOPICAL ×2 (07:40→22:12)
[2022-01-09 08:13] VITALS: BP 126/81; PULSE 96; RESP 16; TEMP 36.7; O2SAT 100
--- NOTE | 2022-01-09 10:14 | PCM.PN.HOSP ---
Documented by User: Desi Ahumada NP, MEDICAL PHYSICS RESEARCHER-C 01/09/22 10:25 Subjective Subjective Patient seen and examined. Reports generalized itching, worse in the abdominal area. States she feels rash is improved. Denies fever, chills. Denies other symptoms or complaints. Objective Data Objective Data Vital Signs: Vital Signs Temp Pulse Resp BP Pulse Ox 98.1 F 96 16 126/81 H 100 01/09/22 08:13 01/09/22 08:13 01/09/22 08:13 01/09/22 08:13 01/09/22 08:13 Oxygen Delivery Method Room Air Weight: 210 lb 11.2 oz Body Mass Index (BMI) 36.1 Intake & Output: Intake and Output for Last 24 Hours 01/07/22 01/08/22 01/09/22 23:59 23:59 23:59 Intake Total 1702 / 1702 796.67 / 796.67 Balance 1702 / 1702 796.67 / 796.67 Lab / Micro Data Result Diagrams: 01/09/22 04:54 01/09/22 04:54 Labs: Laboratory Results - last 24 hr 01/08/22 15:00: Urine Color Yellow, Urine Clarity Clear, Urine pH 6.0, Ur Specific [place] 1.010, Urine Protein Negative, Urine Glucose (UA) Normal, Urine Ketones Negative, Urine Occult Blood 25 H, Urine Nitrite Negative, Urine Bilirubin Negative, Urine Urobilinogen Normal, Ur Leukocyte Esterase 25 H, Urine RBC 0 SEEN, Urine WBC 0 SEEN, Ur Squamous Epith Cells 0-5 SEEN, Urine Bacteria 0 SEEN, Urine Mucus 0 SEEN 01/08/22 15:02: WBC 19.3 H, RBC 5.34, Hgb 11.8 L, Hct 37.9, MCV 71.0 L, MCH 22.1 L, MCHC 31.1 L, RDW Std Deviation 48.9 H, RDW Coeff of Edie 19.9 H, Plt Count 295, MPV 9.1, Immature Gran % (Auto) 0.400, Neut % (Auto) 87.8 H, Lymph % (Auto) 5.1 L, [place] % (Auto) 4.0, Eos % (Auto) 2.5, Baso % (Auto) 0.2, Absolute Neuts (auto) 16.9 H, Absolute Lymphs (auto) 0.99, Nucleated RBC % 0 01/08/22 15:02: Lactic Acid 0.8 01/08/22 16:00: Sodium 137, Potassium 3.9, Chloride 104, Carbon Dioxide 26.0, Anion Gap 7, BUN 13, Creatinine 0.63, Estim Creat Clear Calc 112.75, Est GFR (MDRD) Af Amer 141, Est GFR (MDRD) Non-Af 117, BUN/Creatinine Ratio 20.5 H, Glucose 106, Calcium 8.8, Total Bilirubin 0.30, AST 14 L, ALT 20, Alkaline Phosphatase 98, Troponin I High Sens < 3 L, Total Protein 7.3, Albumin 3.4, Globulin 3.9, Albumin/Globulin Ratio 0.9 01/09/22 04:54: WBC 12.6 H, RBC 5.44 H, Hgb 11.8 L, Hct 39.0, MCV 71.7 L, MCH 21.7 L, MCHC 30.3 L, RDW Std Deviation 49.6 H, RDW Coeff of Edie 20.1 H, Plt Count 312, MPV 9.7, Immature Gran % (Auto) 0.300, Neut % (Auto) 93.2 H, Lymph % (Auto) 5.6 L, Carbon % (Auto) 0.6, Eos % (Auto) 0.1, Baso % (Auto) 0.2, Absolute Neuts (auto) 11.7 H, Absolute Lymphs (auto) 0.71 L, Nucleated RBC % 0, Differential Comment SCANNED, Anisocytosis 2+, Microcytosis 2+ 01/09/22 04:54: Sodium 138, Potassium 4.0, Chloride 108 H, Carbon Dioxide 23.0, Anion Gap 7, BUN 10, Creatinine 0.52 L, Estim Creat Clear Calc 136.60, Est GFR (MDRD) Af Amer 176, Est GFR (MDRD) Non-Af 145, BUN/Creatinine Ratio 19.1, Glucose 141 H, Calcium 8.8 Physical Exam Const alert and oriented x3 Orientation / Consciousness: awake, oriented to person, oriented to place and oriented to time Nutritional Appearance: obese HEENT normocephalic and moist oral mucous membranes Eyes PERRL, EOMs intact bilaterally and conjunctivae normal Neck no lymphadenopathy Resp normal respiratory effort and clear to auscultation bilaterally Cardio regular rate, regular rhythm and no murmurs Peripheral Pulses: pulses 2+ throughout GI normal to inspection, nondistended, normoactive bowel sounds, non-tender and non-distended Extremity normal to inspection Skin no rashes or lesions noted Skin Narrative: Diffuse rash involving the face, neck, breast, abdomen with less areas on bilateral legs. Diffuse erythema-redness improved from prior assessment. Yellow crusting rash on face, also improving. No drainage. Lesions: no lesions Rashes: no rashes Trauma: no lacerations or abrasions Neuro CN's II-XII intact bilaterally, no focal motor deficits, no sensory deficits noted and deep tendon reflexes 2+ bilaterally Psych mental status grossly normal and affect normal Assessment & Plan Assessment/Plan (1) Cellulitis of face: PLAN: 1. SIRS secondary to diffuse poison latha dermatitis with superimposed bacterial cellulitis-DC IV solu-medro, transition to prednisone. IV rocephin. As needed pain regimen. Nystatin for groin folds. Benadryl/hydroxyzine for pruritus. Likely discharge 01/10/2022 if continued improvement. 2. Obesity-diet and lifestyle modifications encouraged. 3. Chronic microcytic anemia/likely iron deficiency-stable. DVT prophylaxis-not indicated, low risk This patient was seen by SAI Nelson under the supervision of Dr. Theodore. Documented by User: Dr. Margarita Theodore DO 01/09/22 12:49 Subjective Subjective Was seen in conjunction with Desi hAumada. The following represents my independent history and for examination. Please see below for addendum the above. Patient states that overall she is feeling better. She states the intense itching in her face is better however she still is having some fairly intense itching on her abdomen. She does feel that her rash is overall improved. She is recently and is pumping. She has a 4-month-old at home. I told her we would need to keep this in mind when discharging her with medications. The Benadryl does help significantly. Objective Data Lab / Micro Data Result Diagrams: 01/09/22 04:54 01/09/22 04:54 Physical Exam Const alert, oriented x3 and no apparent distress Constitutional Narrative: Obese, middle-aged, Brennon female lying in bed, appears comfortable at this time, nontoxic Exam Limitations: no limitations Nutritional Appearance: obese HEENT head/scalp atraumatic and moist oral mucous membranes HEENT Narrative: Mallampati 2-3, no thrush, dentures in place Head and Scalp: normocephalic Resp normal respiratory effort, no retractions, no use of accessory muscles and clear to auscultation bilaterally Auscultation: Negative for crackles, rales, rhonchi or wheezes Cardio regular rate, regular rhythm, S1 normal heart sound, S2 normal heart sound, no murmurs, no rub, no gallops, no clicks and no JVD GI normal to inspection, nondistended, normoactive bowel sounds, soft to palpation, non-tender and non-distended Extremity no clubbing, cyanosis or edema Peripheral Pulses: Yes pulses 2+ throughout Skin skin turgor normal, no jaundice, no petechiae and no mottling Skin Narrative: Marked erythema with excoriation on her face, erythema seems to be have improved, lesions are crusted over at this time with no signs of acute infection, also has rash on her abdomen, chest, right groin and mildly on her arms bilaterally Neuro oriented x3, moves all extremities and no focal motor deficits Sensorium / Orientation: awake and alert Speech: speech normal Psych affect normal Psych Narrative: Very pleasant Assessment & Plan Assessment/Plan (1) Cellulitis of face: (2) Poison latha dermatitis: (3) Microcytic anemia: PLAN: Assessment: Diffuse poison latha dermatitis Superimposed bacterial cellulitis of the face Microcytic anemia Obesity 4 months Plan: -Clinically improved -Continue Benadryl -Continue IV Rocephin -Start oral iron as I do anticipate her microcytic anemia is likely iron deficiency related to her recent -Would recommend repeat CBC in approximately 4 to 6 weeks -Anticipate discharge in the next 24 hours as long as she continues to improve clinically Charges/Coding Visit Charges Inpatient E&M: 27480 Subs Hosp L2
--- NOTE | 2022-01-09 10:30 | CASEMGMT ---
HUMPHREY MONIQUE Assessment: Face to Face with pt for initial transition planning/care coordination assessment. RN ENEIDA introduced self and role at [facility], pt voices understanding and consents to assessment. Pt is A/O x4 and answers all questions appropriately at this time. Pt lying in bed with at bedside in no distress. Care providers, pharmacy, and demographics verified/updated. Admitting Dx: facial cellulitis PCP:Pt denies. Provided pt with a local in [facility] healthcare directory. 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 Preferred [facility]acy: [facility] Insurance: [employer] Prescription Benefit: yes LW/HPOA: Pt denies having a LW/DPOA and denies need for info regarding AD. LNOK: Rafael Ashley, Living Arrangements: Pt lives with and 8 children in a two story house with 3 steps to enter with a rail. Pt reports she is I in ADL's and denies concerns at home. Transportation: Pt hires drivers for transportation or uses horse and buggy. DME/HHC/SNF: Pt denies hx of DME, HHC or SNF stays. Pt states no concerns with going home at time of dc. Pt states no further concerns/needs. CM to follow. Advised pt to ask CM if any further question/concerns/needs arise, voices understanding. Pt Goal: Home Plan: Home
--- NOTE | 2022-01-09 12:53 | NURSING ---
In to see mother and assist with any questions with pumping. New volufeeds taken and mother milks being taken home today. Someone is coming to get the milk, Mother doing well with the pumping and wishes to continue with the single pump at a time and gave nipple cream. Reviewed with mother her medications taking at this time ok with breast milk feeding.
[2022-01-09] MEDS: predniSONE 20 MG Tablet 60 MG PO (13:02)
[2022-01-09] MEDS: 0.9% Saline Lock 10 ML Syringe IV (13:03)
[2022-01-09] MEDS: Iron Polysaccharide Complex 150 MG CAPSULE PO (16:33)
[2022-01-09] MEDS: DiphenhydrAMINE 25 MG Capsule 50 MG PO (22:08)
[2022-01-10 05:00] VITALS: BP 124/76; PULSE 73; RESP 16; TEMP 36.7; O2SAT 98
[2022-01-10] MEDS: Cefazolin 1 GM/50 ML BAG IV (05:23)
[2022-01-10] MEDS: predniSONE 20 MG Tablet 60 MG PO (08:42)
[2022-01-10] MEDS: Nystatin Powder 15gm Bottle 1 APPLIC TOPICAL (08:42)
[2022-01-10] MEDS: Iron Polysaccharide Complex 150 MG CAPSULE PO (08:42)
[2022-01-10 08:46] VITALS: BP 125/86; PULSE 87; RESP 16; TEMP 37.2; O2SAT 98
--- NOTE | 2022-01-10 10:22 | DS.PCM_ITS ---
Providers Date of Admission: 01/08/22 Date of Discharge: 01/10/22 Primary Care Physician: No Primary Care Phys Reason For Visit: FACIAL CELLULITIS Diagnosis Discharge Diagnosis (1) Cellulitis of face: Status: Acute Code(s): L03.211 - Cellulitis of face (2) Poison latha dermatitis: Status: Acute Code(s): L23.7 - Allergic contact dermatitis due to plants, except food (3) Microcytic anemia: Status: Acute Code(s): D50.9 - Iron deficiency anemia, unspecified Medications at Discharge Home Medications cephalexin 500 mg PO 4X/DAY #36 cap 01/10/22 polysaccharide iron complex [Ferrex 150] 150 mg PO DAILY #30 cap 01/10/22 prednisone 10 mg PO DAILY #30 tab 01/10/22 Hospital Course Operations None Procedures None Summary of Care Provided Minutes Spent on Discharge: 39 Hospital Course: Mrs. Ashley is a 31-year-old white [employer] female who presented to the emergency department at [facility] on 01/08/2022 secondary to a rash. The patient reported at that time she had been working outside in the yard on Friday and pulling weeds with likely poison latha and then subsequently burned the brush pile. She reported later on that evening she began to develop erythema and pruritus of the tissue surrounding her right eye. She reported that it then subsequently developed into blisters on her face that was more diffuse and intense pruritus. She reported that she put topical poison latha cream on her face without improvement in the rash had further spread down her neck chest abdomen and a few spots on her lower extremities/groin. She denies a ny fever or chills but did report that her face developed crusting. She had denied any significant drainage or vision changes. She denied any throat involvement or difficulty swallowing. She did complain of some subjective shortness of breath weakness and fatigue. She delivered a baby 4 months ago and reports she had significant blood loss at that time. Her vital signs showed that she was afebrile but she did have mild tachycardia with heart rate of 109 and she was satting 100% on room air. Her CBC showed a significant leukocytosis and anemia with a hemoglobin of 11.8. This was a microcytic anemia. Her platelet count was normal with and she had a left shift. Her chemistries were unremarkable. Her lactic acid was normal. A troponin was less than 3. Her UA was unremarkable. Blood cultures were obtained on admission and she has had no growth at 48 hours. A urine culture was sent and did show E. coli but with a colony count of 11-25,000. She was maintained on IV antibiotics initially with Unasyn and vancomycin in the emergency department and this was transitioned to Ancef when she was admitted to the medical floor. She was maintained on IV Ancef throughout her hospital course and had significant improvement in the appearance of her rash as well as a decrease in her white count despite being on steroids for her poison latha dermatitis. Her IV steroids were transitioned to oral on 01/09/2022 when she was maintained on IV antibiotics. Her superimposed bacterial cellulitis appeared much improved on the morning of 01/10/2022 and was felt she was stable for discharge. Given her microcytic anemia she was started on oral iron during her hospitalization and it was recommended she follow-up with a primary care physician to establish and to obtain repeat CBC in 4 to 8 w eeks after being on oral iron supplementation. She is also breast-feeding at this time. She was discharged on Keflex 4 times daily to complete a course for 10 days as well as an prednisone taper. Both are okay with breast-feeding. She was also recommended to take Benadryl as needed but use sparingly as this is expressed in breastmilk. Prescriptions for her prednisone, Keflex, and iron were sent to the pharmacy. She was discharged home in stable condition on 01/10/2022. Discharge diagnoses: Diffuse poison latha dermatitis Superimposed bacterial cellulitis of the face Microcytic anemia Obesity -4 months Physical Exam Const alert, oriented x3 and no apparent distress Constitutional Narrative: Obese, middle-aged, Tenri[employer] female sitting up in bed, appears comfortable at this time, nontoxic, at bedside, patient eating breakfast General Appearance: cooperative, comfortable, well kempt and well developed Orientation / Consciousness: awake, oriented to person, oriented to place and oriented to time Exam Limitations: no limitations Nutritional Appearance: obese HEENT normocephalic, head/scalp atraumatic, hearing grossly normal bilaterally and moist oral mucous membranes HEENT Narrative: Dentures in place, Mallampati 2, no thrush Eyes PERRL, EOMs intact bilaterally and conjunctivae normal Neck no lymphadenopathy, supple and no JVD Resp normal respiratory effort, no retractions, no use of accessory muscles and clear to auscultation bilaterally Auscultation: Negative for crackles, rales, rhonchi or wheezes Cardio regular rate, regular rhythm, S1 normal heart sound, S2 normal heart sound, no murmurs, no rub, no gallops, no clicks and no JVD Peripheral Pulses: pulses 2+ throughout GI normal to inspection, nondistended, normoactive bowel sounds, soft to palpation, non-tender and non-distended Extremity normal to inspection and no clubbing, cyanosis or edema Skin no rashes or lesions noted, skin turgor normal, no jaundice, no petechiae and no mottling Skin Narrative: Significantly improved erythema on face with continued contact dermatitis on her abdomen but no open lesions present on abdomen or chest at this time, no weeping areas on face and appearance is significantly improved since admission Lesions: no lesions Rashes: no rashes Trauma: no lacerations or abrasions Neuro oriented x3, CN's II-XII intact bilaterally, moves all extremities, no focal motor deficits, no sensory deficits noted and deep tendon reflexes 2+ bilaterally Sensorium / Orientation: awake and alert Speech: speech normal Motor Exam: strength 5/5 throughout Psych mental status grossly normal and affect normal Psych Narrative: Very pleasant Weight / BMI Weight Weight: 95.572 kg Body Mass Index (BMI) 36.1 ABG / Lab / Microbiology Data Result Diagrams: 01/09/22 04:54 01/09/22 04:54 Microbiology: Microbiology 01/08/22 15:00 Urine, Clean Catch Urine Culture - Final Escherichia coli 01/08/22 15:02 Blood Culture (Wb) - Anticubital Left Blood Culture - Preliminary No growth in 48 hours. 01/08/22 15:23 Blood Culture (Wb) - Anticubital Right Blood Culture - Preliminary No growth in 48 hours. D/C Instructions Discharge Diet: No restrictions Meaningful Use Info Meaningful Use Diagnoses (Choose all that apply): None applicable Discharge Plan Admission Admit Date/Time: 01/08/22 16:50 Primary Reason for Your Visit: Poison latha dermatitis/superimposed bacterial cellulitis Attending Provider: Margarita Theodore Primary Care Provider: Care Physician,No Primary Instructions Additional Instructions / Restrictions: Hemoglobin was 11.8 and trended up since our last lab on 04/22/2020 however microcytic--> please take iron as ordered Recommend follow-up with her primary care physician of your choice in the next 2 to 4 weeks with repeat CBC in 4 to 6 weeks to recheck hemoglobin Take antibiotic until completed Okay to use Benadryl at home as directed on packaging but use as sparingly as possible as this can transmit into breastmilk Keflex and prednisone are okay with breast-feeding Discharge Orders/Prescriptions Prescriptions: New prednisone 10 mg tablet 10 mg PO DAILY Qty: 30 RF: 0 cephalexin 500 mg capsule 500 mg PO 4X/DAY Qty: 36 RF: 0 polysaccharide iron complex [Ferrex 150] 150 mg iron Capsule 150 mg PO DAILY Qty: 30 RF: 1 Referrals / Follow Up: Care Physician,No Primary [Primary Care Provider] - Disposition Disposition (needs filled in before D/C Order can be placed): Home, Self Care Charges/Coding Visit Charges Inpatient E&M: 76919 Disch Hosp
--- NOTE | 2022-01-10 12:29 | PHA.DC.MC ---
Pharmacy Service has performed discharge medication reconciliation and counseling for this patient. 1. CEPHALEXIN 500MG PO 4X/DAY FOR 9 DAYS 2. FERREX 150MG PO DAILYCM 3. PREDNISONE 40MG PO DAILY X 3 DAYS, THEN 30MG X 3 DAYS, THEN 20MG X 3 DAYS, THEN 10MG X 3 DAYS The patient's discharge medication list was reviewed for discrepancies and discrepancies were resolved. Home Medications cephalexin 500 mg PO 4X/DAY #36 cap 01/10/22 polysaccharide iron complex [Ferrex 150] 150 mg PO DAILY #30 cap 01/10/22 prednisone 10 mg PO DAILY #30 tab 01/10/22 The patient was counseled on the following discharge medications and changes in medications for homegoing were reviewed. The Reason for Use, instructions for use, and potential side effects were reviewed for all new medications. The patient's questions regarding all of their medications were answered. The patient was able to verbally demonstrate an understanding of their discharge medications.
--- NOTE | 2022-01-10 13:12 | NURSING ---
[facility] is not able to take pt and her home until 1630 today. Pt and are aware.
== END 2022-01-10 14:46 | disposition home or self-care (01) | DRG 603 ==
LOC: ED 16:14 → MS3 01-09 02:58
PROVIDERS: Nurse Practitioner Family; Admitting Provider Family Medicine; Emergency Provider Emergency Medicine; Visit Provider Internal Medicine
DX: L03.211 Cellulitis of face (principal); B96.20 Unspecified Escherichia coli [E. coli] as the cause of diseases classified elsewhere; D50.0 Iron deficiency anemia secondary to blood loss (chronic); L23.7 Allergic contact dermatitis due to plants, except food; L30.4 Erythema intertrigo; R03.0 Elevated blood-pressure reading, without diagnosis of hypertension; E66.9 Obesity, unspecified; Z68.36 Body mass index [BMI] 36.0-36.9, adult
CPT/HCPCS: 36415; 80048; 80053; 81001; 83605; 84484; 85025; 87040; 87077; 87086; 87088; 87186; 93005; 99285; J7030; J7040; A4216; J0295

== ENCOUNTER 2023-05-03 14:00 | Inpatient (IN) | payer OTHER, SELFPAY ==
[2023-05-03] VITALS (71 sets, daily range): BP systolic 122–154; BP diastolic 62–79; PULSE 83–108; RESP 16–20; TEMP 36.3–37.1; O2SAT 94–100; BMI 42.3
--- NOTE | 2023-05-03 13:07 | OB.TRI.NOTE ---
HPI - General General Date of Service: 05/03/23 Chief Complaint: no movement since yesterday HPI Narrative SHANTAL CHURCH, is a 32 F @ 37+ weeks who presents with no movement since yesterday- states movements have been slowing over last few days. fetus with multiple fatal anomalies an anhydramnios - comfort care was planned after delivery. pt denies VB, LOF or cramping. PFSH PFSH Medical History Patient denies significant medical history Home Medications fluoxetine 20 mg capsule (Prozac) 20 mg PO DAILY 05/03/23 [History Last Taken 05/02/23 15:00 20 mg] multivitamin ea PO .with meals 05/03/23 [History Last Taken 05/03/23 10:30 2 ea] Allergy/AdvReac Type Severity Reaction Status Date / Time eggs Allergy Mild Other Uncoded 05/03/23 12:22 Family History (Updated 01/08/22 @ 16:43 by Desi Ahumada NP, [employer]) Father Heart disease Mother Heart disease Surgical History Previous section Social History (Updated 01/08/22 @ 16:44 by Desi Ahumada NP, [employer]) household members: spouse and children Smoking Status: Never smoker alcohol intake: never substance use type: does not use History Elective abortions Hx Para 7 Spontaneous abortions Hx # Term Pregnancies Ectopic pregnancies Hx # Pregnancies Multiple births # of living children Physical Exam Narrative Abd: soft, non tender, gravid. Bedside ultrasound: Breech- maternal RIGHT- Difficult scan due to anhydramnios and multiple anomalies but no FHR noted. Color flow applied as well. Findings were discussed with patient and . Const alert and oriented x3 General Appearance: cooperative HEENT normocephalic GI GI Narrative: Gravid, non tender to palpation. OB / External & Speculum: external exam normal Extremity normal to inspection Skin no rashes or lesions noted Neuro oriented x3 and CN's II-XII intact bilaterally Psych Appearance: grossly normal Assessment & Plan (1) Obesity affecting : (2) Previous section: (3) Multiparous: (4) History of delivery of macrosomal : (5) Retained placenta: QUALIFIERS: Retained placenta detail: portions of placenta Qualified Code(s): O73.1 - Retained portions of placenta and membranes, without hemorrhage (6) anomaly: (7) demise, greater than 22 weeks, antepartum: PLAN: Plan @ 37+ weeks, demise (know fatal anomalies) 1) pt and have been counseled extensively prior to this visit and today about options for CS, IOL at tertiary [facility]- risks of delivery given h/o of Hemorrhage etc by [facility]IRA and my [facility] colleagues. Today I again reviewed options with patient- delivery via cs today, transfer to [facility] for IOL, Planned IOL during weekday when more staffing available. Reviewed high risk for PPH, Head entrapment which could necessitate maneuvers to release which could ultimately decapitate fetus. They understand all of this as well as other risks that have previously been reviewed and would like to discuss all options together and decide on plan of care. 2)
--- NOTE | 2023-05-03 13:29 | HP.PCM.OB_ITS ---
HPI - General General Date of Admission: 05/03/23 Date of Service: 05/03/23 HPI Narrative SHANTAL CHURCH, is a 32 F @ 37 + weeks who presents c/o no movement since yesterday. pt reports over past few days the movement has been slowing. pt reports no vaginal bleeding, CTX or LOF. PFSH PFSH Medical History (Reviewed 01/08/22 @ 16:43 by Desi Ahumada [employer]PERVIS[employer]ACHINE WORK[employer], [employer]) Patient denies significant medical history Home Medications fluoxetine 20 mg capsule (Prozac) 20 mg PO DAILY 05/03/23 [History Last Taken 05/02/23 15:00 20 mg] multivitamin ea PO .with meals 05/03/23 [History Last Taken 05/03/23 10:30 2 ea] Allergy/AdvReac Type Severity Reaction Status Date / Time vancomycin Allergy red man Verified 05/03/23 13:39 syndrome eggs Allergy Mild Other Uncoded 05/03/23 12:22 Family History (Updated 01/08/22 @ 16:43 by Desi Ahumada [employer], SU[employer]) Father Heart disease Mother Heart disease Surgical History Previous section Social History (Updated 01/08/22 @ 16:44 by Desi Ahumada NP, [employer]) household members: spouse and children Smoking Status: Never smoker alcohol intake: never substance use type: does not use History Elective abortions Hx Para 7 Spontaneous abortions Hx # Term Pregnancies Ectopic pregnancies Hx # Pregnancies Multiple births # of living children Vital Signs Vital Signs Vital Signs: 05/03/23 12:08 05/03/23 12:08 05/03/23 12:09 Temperature Temperature Source Pulse Rate 97 Blood Pressure 139/69 H BP Systolic 139 BP Diastolic 69 Pulse Ox 99 05/03/23 12:09 05/03/23 12:13 05/03/23 12:13 Temperature Temperature Source Pulse Rate 98 99 Blood Pressure BP Systolic BP Diastolic Pulse Ox 99 05/03/23 12:06 05/03/23 12:06 05/03/23 12:18 Temperature 98.1 F Temperature Source Temporal Pulse Rate 96 Blood Pressure BP Systolic BP Diastolic Pulse Ox 05/03/23 12:18 05/03/23 12:23 05/03/23 12:23 Temperature Temperature Source Pulse Rate 95 Blood Pressure BP Systolic BP Diastolic Pulse Ox 100 100 05/03/23 12:28 05/03/23 12:28 Temperature Temperature Source Pulse Rate 102 H Blood Pressure BP Systolic BP Diastolic Pulse Ox 100 Weight Weight: 111.9 kg Body Mass Index (BMI) 42.3 Physical Exam Narrative ABD: gravid, non tender. VE: Closed/Thick/HIGH Ultrasound: BREECH maternal RIGHT, Anhydramnios- very difficult scan due to anomalies - but I was unable to see cardiac activity and Color flow did not demonstrate cardiac activity either. this was relayed to patient and . Const alert and oriented x3 General Appearance: cooperative HEENT normocephalic GI GI Narrative: Gravid, non tender to palpation. OB / External & Speculum: external exam normal Extremity normal to inspection Skin no rashes or lesions noted Neuro oriented x3 and CN's II-XII intact bilaterally Psych Appearance: grossly normal Labs Labs Labs: Blood Type B NEGATIVE Antibody Screen NEGATIVE Hct 39.0 % (37-47) Hgb 11.8 g/dL (12.0-15.0) L Rubella IgG Antibody 258.6 IU/mL Hep Bs Antigen Negative (Negative) HIV 1&2 Antibody Non-Reactive (Nonreactive) Group B Strep DNA Negative (Negative) Rhogam given: Yes Assessment & Plan (1) demise, greater than 22 weeks, antepartum: (2) anomaly: (3) Obesity affecting : (4) Previous section: (5) Multiparous: (6) History of delivery of macrosomal infant: (7) History of hemorrhage, currently : PLAN: Plan @ 37+ weeks, demise (know fatal anomalies) 1) pt and have been counseled extensively prior to this visit and today about options for CS, [facility]OL at [facility]- risks of delivery given h/o of Hemorrhage etc by MFM and my [facility] colleagues. Today I again reviewed options with patient- delivery via cs today, transfer to [facility] for IOL, Planned IOL during weekday when more staffing available. Reviewed high risk for PPH, Head entrapment which could necessitate maneuvers to release which could ultimately decapitate fetus. They understand all of this as well as other risks that have previously been reviewed and would like to discuss all options together and decide on plan of care. 2) Pt option for CS at this time. Declines Salpingectomy- would like to proceed with IUD insertion 8 weeks PP. 3) TXA and T&C x 2 u Prior to Surgery, CBC, PT, PTT, Fibrinogen 4) risks of c/s reviewed with patient and including but not limited to bleeding, infection, injury to pelvic structures including bladder, bowel, vessels. Risk for transfusion. 5) admission to [facility]
[2023-05-03] MEDS: Acetaminophen 500 MG Tablet 1000 MG PO ×2 (13:59→21:48)
[2023-05-03] MEDS: Lactated Ringers 1,000 ML 999 ML IV (14:21)
[2023-05-03 14:41] LABS: Absolute Lymphocyte Count 1.77 X10^3/uL (0.83-4.51); Basophil# 0.03 X10^3/uL; Basophil% 0.2 % (0-1); Eosinophil# 0.13 X10^3/uL; Hemoglobin 12.3 g/dL (12.0-15.0); Lymphocyte # 1.77 X10^3/ul (0.83-4.51); Mean Corp Hgb Conc 32.4 g/dL (32-36); Mean Corpuscular Hgb 29.3 pg (27.0-32.0); Mean Corpuscular Volume 90.5 fL (81-99); Mean Platelet Vol. 9.7 fl (6.2-12.0); Monocyte# 0.63 X10^3/uL; NRBC Flagged by Analyzer 0 % (0-5); Neutrophil # 9.98 X10^3/uL (2.7-7.7); Neutrophil % 79.3 % (47-70); Platelet Count 252 K/mm3 (150-450); RBC Distribution Width SD 42.4 fl (35.1-43.9); White Blood Count 12.6 K/mm3 (4.4-11.0)
[2023-05-03 15:10] LABS: Partial Thromboplast Time 28.5 Seconds (24.1-36.2)
[2023-05-03 15:11] LABS: Fibrinogen 491 mg/dl (203-444)
[2023-05-03] MEDS: Sodium Citrate/Citric Acid 30 ML UDC PO (15:38)
[2023-05-03] MEDS: Cefazolin 2 GM in 0.9% Normal Saline 100 ML IV (15:41)
[2023-05-03 16:00] LABS: Syphilis Antibodies Non-reactive
--- NOTE | 2023-05-03 16:29 | PLAC_PTH ---
PATIENT: SHANTAL CHURCH LOC: [facility] U#:[id number] AGE/SX: 32/F ROOM: [facility] RE05/03/[address]: Dr. Nisa Ordoñez, MDDOB: 1990 BED: 1 DIS: 05/04/2023 SPEC #: [id number] RECD: 05/03/23 18:35 STATUS: ANISHA RODRICK #: [id number] MIRANDA: 05/03/23 16:[address]: Nisa Ordoñez DEPT: SURGICAL PATHOLOGY RECD BY: Colleen Geiger ENTERED: 05/05/23 07:25 SP TYPE: PLACENTA OTHR DR: No Primary Care Phys Tissues: Placenta, NOS Procedures: Surgery Specimen Level V HEADER OPERATION: section PRE-OP DIAGNOSIS: demise greater than 22 weeks TISSUE SUBMITTED: Placenta MICROSCOPIC DIAGNOSIS Booth placenta (254 gm): Umbilical cord - bivascular with no inflammation. Placental membranes - not present. Placental disc - Cindi-Pawel change, foci of organizing intraparenchymal hemorrhage, remote infarct, increased intraparenchymal fibrin plaques and focal nonspecific chronic villitis. AM:micah 05/06/2023 MICROSCOPIC DESCRIPTION Slides are reviewed. GROSS DESCRIPTION SPECIMEN: PLACENTA / CLINICAL INFORMATION: A. Weight: Not noted B. Gestational Age: 37 weeks C. Sex: Female PLACENTAL WEIGHT (POST FIXATION): 254 gm PLACENTAL DIMENSIONS: 13.0 x 12.0 x 3.0 cm PLACENTAL SHAPE: Usual ovoid PLACENTAL WEIGHT FOR GESTATIONAL AGE: Under 10th percentile MEMBRANES - Not submitted with specimen. UMBILICAL CORD - Present A. Color: West-douglas B. Insertion: Eccentric C. Length: 34.0 cm D. Diameter: 1.2 cm E. Number of vessels: Two F. Abnormalities: None PLACENTAL DISC - Present A. Color of surface: [place]-douglas B. surface abnormalities: None C. Maternal cotyledons: Intact with minimal tears D. Attached retro placental clot: No clot E. Cut surface: Dark red and spongy F. Lesions: None G. Separate clot: 5.0 x 3.0 x 1.0 cm SECTIONS SUBMITTED: 1. Umbilical cord ( end notched) 2. Umbilical cord, placental end 3. Membrane roll, lesion 4. Placental disc, and maternal surfaces, lesion 5. Placental disc, and maternal surfaces, lesion 6. Placental disc, and maternal surfaces AM:micah 05/05/2023 TC:3 CPT: 15841
[2023-05-03] MEDS: Methylergonovine 0.2 MG/ML Ampul IM (16:33)
--- NOTE | 2023-05-03 17:08 | OP.PCM_ITS ---
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 She was then placed in the supine position. She was prepped and draped in the normal sterile fashion. Anesthesia was found to NOT BE adequate. At this time discussion was had and decision for General anesthesia. At this time a Pfannenstiel skin incision was made with a knife was carried down to the underlying layer of the fascia. The fascial incision was then extended laterally using curved Shetty scissor. Attention was then turned to the superior aspect of the fascial edge was grasped with 2 straight Peter clamps tented up and the rectus muscle dissected off sharply using curved Shetty scissor. Rectus muscles were then in the midline bluntly and peritoneum was entered bluntly. Gentle opposing traction was placed. At this time the vesicouterine peritoneum was identified. Scalpel was used to make a uterine incision in a low transverse fashion. The uterus was then entered bluntly gentle opposing traction was placed to extend this incision. Membranes were ruptured - Scant fluid-clear. Infant's buttocks was brought to the uterine incision was delivered atraumatically followed by the rest of the body. Cord was clamped and cut was handed to the waiting nursery team. infant did not display any signs of life at delivery.Multiple anomalies visible. The Placenta was removed from the uterus- noted to be extremely small. The uterus was then removed from the abdominal cavity. The uterus was cleared of all clots and debris using a lap. At this time the uterine incision was reapproximated using #1 Vicryl in a running locked fashion. Hemostasis was appreciated. Posterior cul-de-sac was then cleared of all clots and debris. Uterus was placed back in the abdominal cavity. Gutters were cleared of all clots and debris. Uterine incision was reevaluated and noted to be of excellent hemostasis. Cipriano placed. Peritenoneum unable to be reapproximated due to poor tissue. Fascia was then reapproximated using #1 PDS in a running fashion. Subcu layer was irrigated, cipriano placed and then reapproximated with #2 0 plain gut suture in an interrupted fashion. Subcu layer was closed using 4-0 vicryl in a subcu fashion. Dry sterile dressing was applied. Instrument lap needle count correct ?2. Anticipated normal postoperative course. Presentation: Positive for Footling Breech Amniotic Membrane Rupture Type: Artificial Amniotic Fluid Description: Clear Placental Delivery Description: Manual Removal Placenta Disposition: [facility] Specimen(s) Sent to Pathology: placenta Cord Vessel Description: 3 Vessels Cord Entanglement: None Infant A Gender: Female (determined by peds ) (1 minute): 0 (5 minute): 0 Delayed Cord Clamping: No Complications Risks of Surgery Discussed w/Patient: Bleeding, Anesthesia Risks, Infection, Need for Future C-Sections and Injury to surrounding structure(s) including bowel and bladder Complications: none Admit VTE Documentation VTE Present on Admission: Yes VTE Mechan Device Prophylaxis: SCD's VTE Pharm Prophylaxis Ordered: Yes
[2023-05-03] MEDS: Oxytocin 15 Units/NS 250ml 15 UNITS/250 ML IV.SOLN 83 UNITS IV (17:25)
--- NOTE | 2023-05-03 18:13 | NURSING ---
IUFD head circumference 12 inches
[2023-05-03] MEDS: Ketorolac 30 MG/ML Syringe IV (18:17)
--- NOTE | 2023-05-03 19:22 | NURSING ---
report given to Angus YIN, to resume care at this time.
[2023-05-03] MEDS: Lactated Ringers 1,000 ML 100 ML IV (20:52)
[2023-05-03 21:17] LABS: Pathology Specimen OB SEE PATHOLOGY REPORT
--- NOTE | 2023-05-03 22:42 | CPS ---
I.S. teaching done by HUMPHREY Smith , nurse to instruct and teach
[2023-05-04] VITALS (8 sets, daily range): BP systolic 115–131; BP diastolic 56–71; PULSE 83–101; RESP 16–18; TEMP 36.4–36.9; O2SAT 95–99
[2023-05-04] MEDS: Ketorolac 30 MG/ML Syringe IV ×3 (00:11→12:33)
[2023-05-04] MEDS: Acetaminophen 500 MG Tablet 1000 MG PO ×2 (03:56→10:18)
[2023-05-04] MEDS: Enoxaparin 40 MG/0.4 ML Syringe SC (05:38)
[2023-05-04 06:03] LABS: Hematocrit 31.9 % (37-47); Hemoglobin 10.5 g/dL (12.0-15.0); Mean Corp Hgb Conc 32.9 g/dL (32-36); Mean Corpuscular Hgb 29.6 pg (27.0-32.0); Mean Corpuscular Volume 89.9 fL (81-99); Mean Platelet Vol. 9.4 fl (6.2-12.0); Platelet Count 214 K/mm3 (150-450); RBC Distribution Width CV 12.9 % (11.6-14.6); RBC Distribution Width SD 42.3 fl (35.1-43.9); Red Blood Count 3.55 M/mm3 (4.2-5.4); White Blood Count 14.8 K/mm3 (4.4-11.0)
[2023-05-04] MEDS: 0.9% Saline Lock 10 ML Syringe IV ×2 (06:28→12:34)
--- NOTE | 2023-05-04 07:59 | PN_ITS ---
Subjective Subjective patient seen at bedside, doing well. Patient reports good pain control. lochia mild. voiding w/o difficulty. passing flatus. reports did vomit last night but feeling better. planning dc home today. is planned for tomorrow. Objective Data Objective Data Vital Signs: Vital Signs Temp Pulse Resp BP Pulse Ox O2 Del Method 97.9 F 83 16 129/60 H 99 Room Air 05/04/23 03:53 05/04/23 03:55 05/04/23 03:53 05/04/23 03:55 05/04/23 03:53 05/04/23 03:53 Oxygen Delivery Method Room Air Weight: 111.9 kg Body Mass Index (BMI) 42.3 Intake & Output: Intake and Output for Last 24 Hours 05/02/23 05/03/23 05/04/23 23:59 23:59 23:59 Intake Total 1670 / 1670 500 / 500 Output Total 1550 / 1550 2200 / 2200 Balance 120 / 120 -1700 / -1700 Lab / Micro Data 05/04/23 05:44 Labs: Laboratory Results - last 24 hr 05/03/23 13:37: Blood Type B NEGATIVE, Antibody Screen NEGATIVE 05/03/23 14:15: WBC 12.6 H, RBC 4.20, Hgb 12.3, Hct 38.0, MCV 90.5, MCH 29.3, MCHC 32.4, RDW Std Deviation 42.4, RDW Coeff of Edie 13.0, Plt Count 252, MPV 9.7, Immature Gran % (Auto) 0.500, Neut % (Auto) 79.3 H, Lymph % (Auto) 14.0 L, [place] % (Auto) 5.0, Eos % (Auto) 1.0, Baso % (Auto) 0.2, Absolute Neuts (auto) 10.0 H, Absolute Lymphs (auto) 1.77, Nucleated RBC % 0 05/03/23 14:50: APTT 28.5, Fibrinogen 491 H, Syphilis Total Ab Non-reactive 05/03/23 : Crossmatch See Detail 05/04/23 05:44: WBC 14.8 H, RBC 3.55 L, Hgb 10.5 L, Hct 31.9 L, MCV 89.9, MCH 29.6, MCHC 32.9, RDW Std Deviation 42.3, RDW Coeff of Edie 12.9, Plt Count 214, MPV 9.4 Physical Exam Narrative Abd: dressing dry and intact. Soft, fundus firm. Const alert and oriented x3 General Appearance: cooperative HEENT normocephalic Neck General: normal visual inspection GI soft to palpation and non-distended GI Narrative: Fundus firm Extremity normal to inspection and no calf tenderness Skin no rashes or lesions noted Neuro oriented x3 and CN's II-XII intact bilaterally Psych mental status grossly normal Assessment & Plan Assessment/Plan (1) Delivery by section: (2) demise, greater than 22 weeks, antepartum: (3) anomaly: (4) Obesity affecting : (5) Previous section: (6) History of hemorrhage, currently : PLAN: Plan POD# 1 , Doing well Routine care pain mgmt monitor VS ambulation dc home today
--- NOTE | 2023-05-04 08:01 | DCINST_ITS ---
Discharge Instructions Diet Discharge Diet: No restrictions Activity May resume sexual activity in: 6-8 weeks Lifting Restrictions: 25 Dressing / Incision Call your doctor if your incision/area has: Continuous Slow Oozing, Sudden Increased Bleeding, Increased Pain/ Swelling, Increased Redness, Foul Smelling Discharge and Swelling at the incision site Call your doctor if you observe: Fever of 101 or Higher, Inability to urinate, Using more than 1 pad per hour and Uncontrolled pain Additional Dressing/Incision Instructions:: remove dressing at 7 days post op- if it becomes saturated prior to that time you may remove it. Let soap and water run over incision sites and dab dry. keep incision clean and dry. Follow Up Care Please Follow Up With: Nisa Ordoñez MD When: 1-2 weeks post of incision check and again at 6 weeks post . [phone] Test Results: Test results from this visit will be discussed in further detail at your follow- up appointment, if applicable. Discharge Plan Admission Admit Date/Time: 05/03/23 14:00 Attending Provider: Nisa Ordoñez Primary Care Provider: Kriss [place] Primary Discharge Orders/Prescriptions Prescriptions: New fluoxetine 20 mg Capsule 20 mg PO DAILY 30 Days Qty: 30 5RF sennosides-docusate sodium [Stool Softener-Stimulant Laxat] 8.6-50 mg Tablet 1 - 2 tab PO DAILY Qty: 30 0RF acetaminophen 500 mg Tablet 1,000 mg PO Q6H Qty: 60 0RF ibuprofen 600 mg Tablet 600 mg PO Q6H Qty: 60 0RF simethicone 80 mg Tablet,Chewable 80 mg PO PCHS PRN (Reason: Indigestion/stomach pain) Qty: 30 0RF Continued multivitamin Powder In Packet PO .with meals Patient Comments: patient reports taking multivitamins with meals, tablets but reports taking powdered multivitamins with meals fluoxetine [Prozac] 20 mg capsule 20 mg PO DAILY 30 Days Qty: 0 0RF Referrals / Follow Up: Care PhysicianKriss Primary [Primary Care Provider] - Disposition Disposition (needs filled in before D/C Order can be placed): Home, Self Care
[2023-05-04] MEDS: Senna/Docusate Sodium 1 Tablet PO (10:18)
[2023-05-04] MEDS: FLUoxetine 20 MG Capsule PO (10:19)
--- NOTE | 2023-05-04 14:17 | NURSING ---
Spoke with pt about social service consult and history of PPD. Pt states she has a doctor to follow up with for her depression. Currently on Prozac [address] Guerrero gave perscription to continue that. Pt denies wanting follow up phone call as they do not have a phone. Gave her unit phone number and told them to call us with any needs. We have a social media editor on unit here and could get them in touch with her. Scored a 7 on PHQ9, denies feeling of harming herself or others. Will follow up with [facility] office in 1 week for incision check.
== END 2023-05-04 15:00 | disposition home or self-care (01) | DRG 787 ==
LOC: WPOUT 14:02 → WP 14:02
PROVIDERS: Admitting Provider Obstetrics & Gynecology; Referring Provider Obstetrics & Gynecology; Visit Provider Obstetrics & Gynecology
DX: O36.4XX0 Maternal care for intrauterine death, not applicable or unspecified (principal); O41.03X0 Oligohydramnios, third trimester, not applicable or unspecified; Z3A.37 37 weeks gestation of pregnancy; O32.8XX0 Maternal care for other malpresentation of fetus, not applicable or unspecified; O35.8XX0 Maternal care for other (suspected) fetal abnormality and damage, not applicable or unspecified; Z87.59 Personal history of other complications of pregnancy, childbirth and the puerperium; O34.219 Maternal care for unspecified type scar from previous cesarean delivery; Z37.1 Single stillbirth
CPT/HCPCS: 36415; 59050; 76815; 85025; 85027; 85384; 85730; 86780; 86850; 86900; 86901; 86920; 86922; 88307; 99221; J7120; A4216; G0378; J2790